=== PATIENT | male | born 1990 | race Hispanic/Latino ===

== ENCOUNTER 2016-08-24 16:15 | Emergency (ER) | payer OTHER ==
[~2016-08-24] VITALS: Ht 177.8 cm; Wt 80.6 kg
[~2016-08-24 16:15] MED LIST: CLOTRIMAZOLE15 GM TP; PREDNISONE50 MG PO; TYLENOL WITH C1 EACH PO
[2016-08-24 18:33] LABS: MCH 27.8 PG (29.0-34.0); MCHC 34.1 G/DL (30.0-36.0); MCV 81.4 FL (86-99); PLATELET COUNT 177 K/uL (156-360); RBC DIS.WIDTH-CV 13.6 % (11.8-14.6); RBC DIS.WIDTH-SD 39.8 % (39-53); RED BLOOD COUNT 5.65 M/uL (4.00-5.50); WHITE BLOOD COUNT 7.4 K/uL (4.1-10.2)
[2016-08-24 18:35] LABS: ADD MIUA? NO; BILIRUBIN NEGATIVE; BLOOD NEGATIVE; COLOR YELLOW ((YELLOW)); GLUCOSE (STRIP) NEGATIVE; KETONES NEGATIVE; LEUKOCYTES NEGATIVE; NITRITE NEGATIVE; PROTEIN (STRIP) NEGATIVE; SPECIFIC GRAVITY 1.015 (1.000-1.030); UROBILINOGEN 0.2 MG/DL (0.2-1.0)
[2016-08-24 18:43] LABS: CHLORIDE 106 mEq/L (99-109); POTASSIUM 4.1 mEq/L (3.7-5.4); SODIUM 142 mEq/L (136-147)
[2016-08-24 18:45] LABS: GLUCOSE 83 mg/dL (70-99)
[2016-08-24 18:46] LABS: ANION GAP 10 MEQ/L (2-14)
[2016-08-24 18:47] LABS: TOTAL BILIRUBIN 0.7 mg/dL (0.0-1.0)
[2016-08-24 18:48] LABS: ALKALINE PHOSPHATASE 84 IU/L (3-129); GFR ESTIMATE (CALCULATED) > 59 mL/min/
[2016-08-24 18:50] LABS: UREA NITROGEN (BUN) 13 mg/dL (9-23)
[2016-08-24 18:52] LABS: LIPASE 29 U/L (1.0-51.0)
[2016-08-24] MEDS ORDERED: ULTRAM50 MG PO (19:24)
[2016-08-24 20:36] VITALS: BP 123/66
== END 2016-08-24 20:38 | disposition home or self-care (01) ==
LOC: EME 16:15
PROVIDERS: Physician Assistant
DX: R10.9 Unspecified abdominal pain (principal)
CPT/HCPCS: 74176; 80053; 81003; 83690; 85027; 99281; 99284; J1885